=== PATIENT | male | born 1970 | race Caucasian/White ===

== ENCOUNTER 2020-08-22 09:30 | Outpatient (CLI) | payer OTHER, SELFPAY ==
[2020-08-23 02:23] LABS: COVID-19 RT-PCR UVMMC Result Positive (Negative)
== END 2020-08-22 09:31 | disposition home or self-care (01) ==
PROVIDERS: Visit Provider Nurse Practitioner Family
DX: Z20.822 Contact with and (suspected) exposure to COVID-19 (principal)
CPT/HCPCS: U0003

== ENCOUNTER 2020-10-17 01:10 | Outpatient (CLI) | payer OTHER, SELFPAY ==
--- NOTE | 2020-10-17 | DI.MRI_ITS ---
Exam(s) MR LUMBAR SPINE WO EXAM: MR LUMBAR SPINE WO CLINICAL HISTORY: LT LEG PAIN, WEAK EHL. TECHNIQUE: Multiplanar multisequence MRI of the Lumbar spine was performed. COMPARISON: There are no plain films available at time of this MRI interpretation. FINDINGS: Five lumbar vertebrae are presumed. Conus medullaris is at normal level. There is no evidence of conus mass nor subjacent clumping of in trathecal nerve roots to suggest arachnoiditis. The distal thecal sac terminates at the upper S1 lev el.There is no evidence of Tarlov intrasacral cysts nor other significant findings within the sacral canal Bones:There are no fractures nor ominous osseous lesions in the lumbar vertebral bodies and visualize d sacrum. There is small Schmorl's node invagination in the inferior endplate of L5 which has no acu te signal associated with it. With respect to the individual levels... T12-L1: Unremarkable L1-2: Normal disc height and signal. No disc herniation nor central canal stenosis.No foraminal steno sis L2-3: Normal disc height. No disc herniation nor central canal stenosis.No foraminal stenosis.No face t arthropathy. L3-4: Normal disc height. No disc herniation or central canal stenosis.No foraminal stenosis.No face t arthropathy. L4-5: Normal disc height and signal. However, there is a left of center posterolateral focal disc pr otrusion which extends posteriorly 5 millimeters and is approximately 9 millimeters wide, located in the left lateral recess. This extends caudally behind the left side of L5 vertebral body for distanc e of 8 millimeters. Central osseous canal dimensions are within normal limits. No foraminal stenosi s on either side at this level. No facet arthropathy L5-S1: Normal disc height and signal. Right lateral annular bulging without a prominent disc herniat ion. No central canal stenosis. No true foraminal stenosis. No facet arthropathy. Soft tissues: paraspinal soft tissues appear unremarkable. IMPRESSION: 1. The main finding here is at L4-5 level where there is a focal posterolateral left disc protrusion as described above which is also seen extending caudally for a distance of approximately 8 millimeter s behind the left side of L5 vertebral body. Actual central canal dimensions are within normal limit s at this level and there is no prominent foraminal stenosis. 2. No other significant findings evident on this MRI scan the lumbar spine. DATA REPOSITORY:
== END 2020-10-17 01:30 ==
PROVIDERS: Visit Provider Chiropractor Orthopedic
DX: M79.605 Pain in left leg (principal); M51.26 Other intervertebral disc displacement, lumbar region
CPT/HCPCS: 72148

== ENCOUNTER 2024-12-11 00:37 | Outpatient (CLI) | payer OTHER, SELFPAY ==
--- NOTE | 2024-12-11 | DI.MRI_ITS ---
Exam(s) MR LOWER JOINT LT WO EXAM: MR LOWER JOINT LT WO CLINICAL HISTORY: Pain in lt knee M25.562 s/p lt knee surgery 15 yrs ago ACL and meniscal. TECHNIQUE: Multiplanar multisequence MRI was performed. COMPARISON: No exams were available for comparison FINDINGS: BONES: There is no fracture or contusion pattern. JOINTS: There is thinning of the articular cartilage overlying the patella. There are small osteophytes arising from the medial femoral tibial joint. There is a small amount of fluid in the joint space. There are few small ossific densities anterior to the anterior cruciate ligament. TENDONS: Extensor mechanism: Unremarkable. Medial retinaculum: Unremarkable. Lateral retinaculum: Unremarkable. Popliteus: Unremarkable. MUSCLES: Unremarkable. MENISCI: There is intermediate signal seen within the posterior horn of the medial meniscus. The meniscus also appears decreased in size. This may be postsurgical. The remainder of the disc is unremarkable. The lateral meniscus is unremarkable. SOFT TISSUES: Unremarkable. LIGAMENTS: Anterior Cruciate: The anterior cruciate ligament repair is intact. Posterior Cruciate: Unremarkable. Medial Collateral:Unremarkable. Lateral Collateral: Unremarkable. OTHER: IMPRESSION: 1. The anterior cruciate ligament repair is intact. 2. No evidence of a cruciate or collateral ligament tear. 3. Decreased size of the posterior horn medial meniscus with intermediate signal noted. This may be postsurgical. The remainder of the menisci are unremarkable. 4. Mild degenerative changes seen in the knee. DATA REPOSITORY:
== END 2024-12-11 00:57 ==
LOC: DI 00:37
PROVIDERS: PCP Family Medicine; Visit Provider Family Medicine
DX: M25.562 Pain in left knee (principal)
CPT/HCPCS: 73721

== ENCOUNTER 2025-01-15 07:14 | Day surgery (SDC) | payer OTHER, SELFPAY ==
[2025-01-15] VITALS (21 sets, daily range): BP systolic 90–147; BP diastolic 50–97; PULSE 57–74; RESP 11–16; TEMP 36.1–36.5; O2SAT 95–100; BMI 34.9
--- NOTE | 2025-01-15 07:16 | PDOC.DSDIS_ITS ---
Date of service: 01/15/25 Discharge Plan Disposition Patient Disposition: Home Condition: Stable Discharge Details Attending Provider: Bravo Katz Primary Care Provider: Alexa Tena Home Meds and New Rx's Prescriptions: New naproxen 250 mg tablet 250 - 500 mg PO BID PRN (Reason: moderate pain and swelling) Qty: 40 0RF oxycodone 5 mg tablet 5 - 10 mg PO .q4-6h MDD 30 mg PRN (Reason: severe pain) Qty: 18 0RF aspirin 81 mg capsule 81 mg PO DAILY 14 Days Qty: 14 0RF Continued cholecalciferol (vitamin D3) 125 mcg (5,000 unit) capsule 125 mcg PO DAILY Discharge Instructions Additional Instructions: Surgery: Left knee arthroscopy with partial medial & lateral meniscectomy, trochlear chondroplasty, and medial femoral condyle osteophyte excision 01/15/25; Moderately significant medial and patellofemoral chondromalacia Activity: Weightbearing as tolerated. Advance range of motion as comfort allows. No knee brace or crutches needed as soon as comfortable. Recommend avoiding sports, pivoting, and squatting for 6-8 weeks. A physical therapy prescription will be sent electronically to start in about 3 weeks. Prescriptions: Aspirin 81 mg take 1 daily to prevent a blood clot for 14 days, starting minoo rrow Naproxen 250 mg take 1-2 every 12 hours with a meal as needed for moderate pain Oxycodone 5 mg take 1-2 every 4-6 hours as needed for severe pain You may use [id number] Tylenol (acetaminophen) as needed for mild pain. These pain medications may be taken all at once or in different combinations as needed. Also, recommend Colace (docusate) as a stool softener as surgery and pain medicine cause constipation. You may try csuo-mht-[id number] diphenhydramine (Benadryl) 25-50 mg nightly as a sleep aid Dressings: Leave dressing in place for 3 days. May then remove and leave open to air or cover incisions with Band-Aids. Leave the sticky Steri-Strips in place until they fall off or remove them after you shower. May shower after 5 days. Follow-up: 10-[address] Katz You may take off the leg compression stockings this evening at home. You may also leave them on a few days longer if you have a history of leg swelling or edema. Let us know right away if you develop any redness, drainage, fevers, chest pain, or trouble breathing. Do not drink alcohol or drive for at least 24 hours after anesthesia. Please call the office during business hours with any questions or concerns. Discharge Orders Discharge Orders: Discharge Order (Routine); Ordered 01/15/25 Ordered By: Amira Taylor DS: Diagnosis Discharge Diagnosis (1) Derangement of medial meniscus of left knee: Status: Acute (2) Arthritis of knee, left: Status: Acute
--- NOTE | 2025-01-15 07:24 | W.PM.OP ---
Operative Note Operative Note PRE-OP DIAGNOSIS: Left knee 1. Medial meniscus tear 2. Prior ACL reconstruction 3. Chondromalacia POST-OP DIAGNOSIS: same 4. small Lateral meniscus tear PROCEDURE: Left knee 1. Partial medial & lateral meniscectomy, CPT #95572 2. Chondroplasty, CPT #43901: Trochlea 3. Osteophyte excision medial gutter/medial femoral condyle, CPT #50154 SURGEON: Bravo Katz [employer] COUNSELORS: None None ANESTHESIA TYPE: Local By Surgeon and General LMA/ETT Refer to Anesthesia Record ESTIMATED BLOOD LOSS: 5 PATHOLOGY: none sent TOURNIQUET TIME: 0 Patient was transported to: PACU Patient's condition: stable Indications: Please see complete medical record for details. Findings: Exam under anesthesia: Mildly limited terminal hyperextension and deep flexion. Otherwise stable varus valgus and Nabor with some stiffness. Patellar tracking okay Arthroscopic findings: Moderately significant diffuse central trochlear chondromalacia with some irregular loose cartilage edges flaps. Moderately sized medial gutter/medial femoral condyle marginal osteophyte formation. Moderately significant medial compartment narrowing with moderately significant diffuse chondromalacia. Chronic?appearing degenerative posterior horn largely radial tear near the root with some horizontal degenerative split tearing. Intact prior ACL reconstruction. Lateral meniscus with superficial fraying/tearing near the root and some redundant white zone body tissue. Only mild lateral compartment chondromalacia/cartilage softening. Procedure Description: In the operating room, general anesthesia was induced. The patient was positioned supine on the operating room table. All bony prominences were well-padded. Preoperative antibiotics were administered. The knee was prepped and draped in the usual sterile fashion. The correct patient, procedure, and side of the procedure were all verified prior to incision. Exam under anesthesia was performed. 10 cc of 0.25% bupivacaine containing epinephrine was infiltrated about the planned anteromedial and anterolateral knee arthroscopy portals. A new anterior lateral portal was established as the prior portal was too far central and high. One of the previous anterior medial vertical portals was able to be used immediately. These portals were established and a complete diagnostic arthroscopy was performed with relevant findings detailed above. The medial compartment and medial meniscus were examined. There was limited space available posteriorly by the tear due to the narrowing of the compartment and hand instruments could not reach the torn posterior horn. Fortunately, the torpedo shaver could reach relatively atraumatically it was used to debride the radial essentially complete posterior horn tear as well as toward the root and into the body contouring as best possible given the limited access. The medial femoral condyle was lightly abraded of irregular cartilage. In the [id number] position, the lateral meniscus superficial tearing was debrided with the torpedo shaver near the root and resected of some redundant white zone tissue in the body. With the knee and various levels of extension through flexion and altering to anteromedial anterolateral portals, the trochlea central large cartilage lesion was debrided lightly centrally and moderately around the periphery of loose irregular cartilage edges and potential flaps. The undersurface the patella was only mildly debrided. Lastly, in the medial gutter the shaver on high-speed was used to resect bone prominence osteophyte of softened abnormal arthritic bone until more normal medial margin of the medial femoral condyle was established to subchondral bleeding bone layer. The arthroscope was directed carefully in the posterior medial and posterior lateral compartments without any pathology seen here especially posterior laterally given the posterior prior cortical button placement. Under direct arthroscopic visualization an 18-gauge needle was passed into the knee from superolateral into the suprapatellar pouch. The knee was copiously irrigated with arthroscopic fluid until there was a clear effluent before being drained of all fluid. The anteromedial and anterolateral portals were closed in 3-0 Monocryl in a buried interrupted fashion. 20 cc of 0.25% bupivacaine with epinephrinewas infiltrated into the knee through the previously placed needle. Mastisol, Steri-Strips, and 4 x 4 gauze were applied over the incisions. The knee was then wrapped gently with an DANIELLE comressive bandage. The patient awoke from anesthesia without complication and was transferred to the recovery room in a stable condition. Unfortunately, the moderately significant chondromalacia medially and trochlea are more consistent with flareup of moderate arthritis than any acute injury. Given the multi?compartment chronic problems, future treatment with total knee arthroplasty might be necessary. Date of Procedure: 01/15/25
[2025-01-15] MEDS: Lactated Ringers 1,000 ML 30 ML IV (08:11)
[2025-01-15] MEDS: ceFAZolin 3,000 MG in Normal Saline 100 ML 200 MG IV (08:45)
[2025-01-15] MEDS: TRANEXAMIC ACID/SOD. CHL. 1,000 MG/100 ML BAG 600 MG IVPB (08:57)
--- NOTE | 2025-01-15 09:03 | ANES.PREOP_ITS ---
General Info Date of Service Date Performed: 01/15/25 Height: 5 ft 9 in Weight: 107.3 kg Body Mass Index (BMI): 34.9 Surgical Procedure: Operation Date: 01/15/25 09:25 Proposed Procedure Side Surgeon p Knee Arthroscopy Left Bravo Katz MD Meds Allergies and Home Medications Allergies Allergy/AdvReac Type Severity Reaction Status Date / Time No Known Allergies Allergy Verified 01/15/25 07:26 Home Medication ?Medication ?Instructions ?Recorded cholecalciferol (vitamin D3) 125 125 mcg PO DAILY 09/25 02/18 mcg (5,000 unit) capsule aspirin 81 mg capsule 81 mg PO DAILY prevent blood clot 01/15/25 14 days #14 caps naproxen 250 mg tablet 250 - 500 mg (1 - 2 x 250 mg ) PO 01/15/25 BID PRN moderate pain and swelling #40 tabs oxycodone 5 mg tablet 5 - 10 mg (1 - 2 x 5 mg) PO .q4-6h 01/15/25 PRN severe pain #18 tabs Current Visit Medications: Current Medications Generic Name Dose Route Start Last Admin Trade Name Freq PRN Reason Stop Dose Admin Ringer's Solution 1,000 mls @ 30 mls/hr 01/15/25 06:00 01/15/25 08:11 IV 01/15/25 23:59 30 mls/hr INFUSION KEN Administration Cefazolin Sodium 3,000 mg/ 100 mls @ 200 mls/hr 01/15/25 06:00 Sodium Chloride IV 01/15/25 23:59 PREOP KEN Tranexamic Acid/Sodium Chloride 1,000 mg in 100 mls @ 600 mls/hr 01/15/25 06:00 IVPB 01/15/25 23:59 PREOP KEN IV Miscellaneous Supplies 1 each 01/15/25 06:00 Iv Access IV 01/15/25 23:59 DIRECTED KEN Oxycodone HCl 0 mg 01/15/25 07:16 Oxycodone 5 Mg Tab PO 02/14/25 07:15 Q3H PRN PRN Pain Sodium Chloride 0 ml 01/15/25 06:00 Normal Saline Flush 10 Ml Syr IV 01/15/25 23:59 PRN PRN Sodium Chloride 0 ml 01/15/25 06:00 Normal Saline 10 Ml Vial IJ 01/15/25 23:59 DIRECTED PRN Sterile Water 0 ml 01/15/25 06:00 Water,Injection,Sterile 10 Ml Vial IJ 01/15/25 23:59 DIRECTED PRN PFSH Active Problems Active Problems: Problem Status Onset Code Chondromalacia, right knee Acute M94.261 Derangement of medial meniscus of left knee Acute M23.304 Trigger finger, right ring finger Acute M65.341 Trigger finger, right middle finger Acute M65.331 Medical History Medical History Lumbago with sciatica, right side Lumbago with sciatica, left side COVID-12 August 2020 Carpal tunnel syndrome, bilateral Pain of right heel Obesity (BMI 30-39.9) Chronic low back pain Surgical History Surgical History Hx of colonoscopy Hx of anterior cruciate ligament surgery Hx of vasectomy History of appendectomy History of carpal tunnel release of both wrists Tobacco Smoking/Tobacco Use Status: Never Passive smoking exposure: No Alcohol Alcohol Intake: never Substance Use Substance use: Never Substance use type: does not use Vital Signs and Lab Results Vital Signs Most Recent Vital Signs in EMR: Most Recent Vital Signs Temp Pulse Resp BP Pulse Ox 36.5 C 63 12 147/94 H 100 01/15/25 07:27 01/15/25 07:27 01/15/25 07:27 01/15/25 07:27 01/15/25 07:27 Anesthesia Assessment and Plan Anesthesia History Personal History: No History of Anesthesia Complications Family History: No Family History of Anesthesia Complications Exercise Tolerance Exercise Tolerance: Metabolic Equivalents>4 Pertinent Negatives Pertinent Negatives: No Symptoms of GERD Cardiac & Pulmonary Exam Cardiac Exam: Normal S1/S2 Heart Sounds Pulmonary Exam: Clear Bilateral Breath Sounds Implantable Cardiac Device Does patient have a Pacemaker or an ICD?: No Airway Exam Known Difficult Airway: No Mallampati Class: 3 Mouth Opening: Normal (> 3cm) Thyromental Distance: Greater than 3 cm Neck Range of Motion: Full ROM Neck Circumference: Thick Teeth Condition: Normal Dentition ASA Classification ASA Score: ASA 2 Emergency Case?: No NPO Status NPO Status: NPO Clears >2 hours, Solids >8 hours Anesthesia Plan Resuscitation Status: Full Code Anesthesia Technique: General Anesthesia Airway Planned: LMA Monitors Used: Standard Monitors and SedLine
[2025-01-15] MEDS: Bupivacaine 0.25% Pres-Free W/EPI 30 ML VIAL (09:13)
--- NOTE | 2025-01-15 10:29 | W.ANESPOSTOP ---
Postoperative Evaluation Date, Time and Location Date Performed: 01/15/25 Time Performed: 10:30 Patient Location: Day Surgery Unit Vital Signs Most Recent Imported Vital Signs: Most Recent Vital Signs Temp Pulse Resp BP Pulse Ox 36.1 C L 68 14 109/71 95 01/15/25 10:25 01/15/25 10:25 01/15/25 10:01/15/25 10:01/15/25 10:25 Pain Score Most Recent Pain Score: Most Recent Pain Score Pain Level 2 01/15/25 10:25 Assessment Mental Status: Awake (Alert & Oriented to Patient Baseline) Airway and Respiratory Function: Patent airway with normal (patient baseline) respiratory exam Cardiovascular Function: Hemodynamically Stable Hydration Status: Adequately Hydrated Nausea & Vomiting: No Nausea or Vomiting Pain: Pain is tolerable per patient Peripheral Nerve Block: Patient did not receive a nerve block
== END 2025-01-15 11:20 | disposition home or self-care (01) ==
PROVIDERS: PCP Family Medicine; Visit Provider Student in an Organized Health Care Education/Training Program
PROC: (CPT 29870; principal; 2025-01-15 09:15)
DX: S83.242A Other tear of medial meniscus, current injury, left knee, initial encounter (principal); S83.282A Other tear of lateral meniscus, current injury, left knee, initial encounter; M17.12 Unilateral primary osteoarthritis, left knee; M94.262 Chondromalacia, left knee; X58.XXXA Exposure to other specified factors, initial encounter
CPT/HCPCS: 29879; 29880; J0690; J1100; J1885; J2003; J2405; J2704; J3010